=== PATIENT | female | born 1975 | race African-American/Black ===

== ENCOUNTER → 2021-11-15 | Day surgery (SDC) | payer BC ==
[~2021-11-15] MED LIST: BUPIVACAINE 0.25% 30ML SDV ONE; DEXAMETHASONE SOD PHOS INJ 4 MG/ML SDV ONE; EPHEDRINE SULFATE INJ 50 MG/ML VIAL ONE; FENTANYL CITRATE/PF 100MCG/2 ML INJ ONE; KETOROLAC TROMETHAMINE 30 MG/ML VIAL ONE; LUNESTA3 MG PO; MIDAZOLAM HCL 2 MG/2 ML VIAL ONE; ONDANSETRON HCL INJ 2MG/ML 2ML 2 MG/ML VIAL ONE; POVIDONE IODINE 0.05% 0.05 % ML PO ONE; PROPOFOL IV EMULSION 10 MG/ML 20 ML VIAL ONE; SEVOFLURANE INHAL SOLN 250 ML PEN BTL ONE; VITAMIN D3 COM1 EACH PO
[2021-11-15 11:20] VITALS: BP 121/7
== END | disposition home or self-care (01) ==
LOC: OR 06:35
PROVIDERS: ATTEND Orthopaedic Surgery
DX: S83.242A Other tear of medial meniscus, current injury, left knee, initial encounter (principal); S83.282A Other tear of lateral meniscus, current injury, left knee, initial encounter; D75.89 Other specified diseases of blood and blood-forming organs; M22.42 Chondromalacia patellae, left knee; M67.52 Plica syndrome, left knee; F41.9 Anxiety disorder, unspecified; X58.XXXA Exposure to other specified factors, initial encounter; Z01.812 Encounter for preprocedural laboratory examination; Z20.822 Contact with and (suspected) exposure to COVID-19
CPT/HCPCS: 0223U; 27599; 29882; 36415; 81025; C1713 ×4; J0690; J1100; J1885; J2250; J2405; J2704; J3010; 76000